=== PATIENT | male | born 1995 | race African-American/Black ===

== ENCOUNTER 2019-06-15 17:36 | Emergency (ER) | payer OTHER, SELFPAY ==
[2019-06-15 17:56] VITALS: BP 136/91; PULSE 76; RESP 18; TEMP 36.7; O2SAT 99
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
[2019-06-15 18:22] VITALS: BP 142/78; PULSE 78; RESP 16; O2SAT 100
[2019-06-15 18:58] LABS: Hepatitis B Surface Antigen Negative (Negative)
[2019-06-15 19:04] LABS: HAV RESULT Negative (Negative); Hepatitis B Core IgM Result Negative (Negative)
[2019-06-15 19:15] LABS: HIV 1/2 Ab P24 Ag Result Negative (Negative); Hepatitis C Virus Antibody Negative (Negative)
== END 2019-06-15 18:22 ==
PROVIDERS: Emergency Provider Emergency Medicine
DX: Z02.89 Encounter for other administrative examinations (principal)
CPT/HCPCS: 36415; 80074; 86703; 99283; G0432

== ENCOUNTER 2023-03-29 23:57 | Emergency (ER) | payer SELFPAY ==
[2023-03-29 23:58] VITALS: BP 114/81; PULSE 77; RESP 14; TEMP 37; O2SAT 98
== END 2023-03-29 23:59 | disposition left against medical advice (07) ==
LOC: ANHED 03-30 01:59
DX: K08.89 Other specified disorders of teeth and supporting structures (principal)
CPT/HCPCS: 99199

== ENCOUNTER 2023-04-09 04:34 | Emergency (ER) | payer OTHER, SELFPAY ==
[2023-04-09 04:36] VITALS: BP 128/74; PULSE 86; RESP 15; TEMP 36.8; O2SAT 100
--- NOTE | 2023-04-09 04:37 | ED.GENADULT ---
HPI - General Adult General Chief complaint: Dental/Oral Stated complaint: toothache Time Seen by Provider: 04/09/23 04:35 History of Present Illness HPI narrative: This is a 27-year-old male presenting via ambulance with 3 weeks of dental pain. patient has been able to get to see his dentist. He has been taking Motrin intermittently with some relief. Related Data Allergies Allergy/AdvReac Type Severity Reaction Status Date / Time No Known Allergies Allergy Verified 04/09/23 04:36 [facility] Past Medical History Medical History (Updated 04/09/23 @ 04:39 by Abdullahi Cain MD) Bipolar 1 disorder Social History Social History (Updated 06/15/19 @ 18:04 by Shaista Griffin PA-C) Substance use type: marijuana Gender identity (if verbalized by the patient): Male Exam Narrative: APPEARANCE: No apparent distress. Head: poor dentition, no evidence of abscess EYES: EOMI, NOSE: Atraumatic NECK: Trachea midline RESPIRATORY: No increased rate of breathing CARDIOVASCULAR: RRR, ABDOMINAL: Non-distended MUSCULOSKELETAl: No obvious deformities NEURO: Alert. Moving 4/4 extremities SKIN:: Warm, dry. Normal color PSYCHIATRIC: Normal affect Course Vital Signs Vital signs: Vital Signs Temperature 98.2 F 04/09/23 04:36 Pulse Rate 86 04/09/23 04:36 Respiratory Rate 15 04/09/23 04:36 Blood Pressure 128/74 04/09/23 04:36 Pulse Oximetry 100 04/09/23 04:36 Oxygen Delivery Room Air 04/09/23 04:36 Temperature 98.2 F 04/09/23 04:36 Pulse Rate 86 04/09/23 04:36 Respiratory Rate 15 04/09/23 04:36 Blood Pressure 128/74 04/09/23 04:36 Pulse Oximetry 100 04/09/23 04:36 Oxygen Delivery Room Air 04/09/23 04:36 Procedures Nerve Block Nerve Block 1: Nerve block date: 05/01/23 Local Anesthetic: bupivacaine 0.25% Amount of anesthesia used (mL): 3 Side: left Intraoral Nerve Block: superior alveolar Procedure Successful: Yes Patient Tolerated Procedure: well Complications: none Medical Decision Making MDM Narrative Medical decision making narrative: -Course: 27-year-old male presenting with dental pain. Given Toradol Tylenol and Augmentin. Dental block performed. Discharged with dental follow-up. -DDX includes but is not limited to: Toothache, dental caries, dental infection -Procedures: CP her block using 3 cc 0.25% -Interventions: Toradol, Tylenol, Augmentin -Shared decision making / Disposition: discharge -RX Toradol motrin, augmentin Vital Signs Vital Signs: Vital Signs Temperature 98.2 F 04/09/23 04:36 Pulse Rate 86 04/09/23 04:36 Respiratory Rate 15 04/09/23 04:36 Blood Pressure 128/74 04/09/23 04:36 Pulse Oximetry 100 04/09/23 04:36 Oxygen Delivery Room Air 04/09/23 04:36 Temperature 98.2 F 04/09/23 04:36 Pulse Rate 86 04/09/23 04:36 Respiratory Rate 15 04/09/23 04:36 Blood Pressure 128/74 04/09/23 04:36 Pulse Oximetry 100 04/09/23 04:36 Oxygen Delivery Room Air 04/09/23 04:36 Discharge Plan Discharge Clinical Impression: Toothache Patient Disposition: Home, Self-Care Condition: Stable Instructions: Antibiotic Form, Toothache (ED) Additional Instructions: please take medications as prescribed. Follow-up with your dentist. Prescriptions: New ibuprofen 800 mg tablet 800 mg PO TID PRN (Reason: pain) 7 Days Qty: 21 0RF acetaminophen 500 mg tablet 1,000 mg PO TID PRN (Reason: eze) 7 Days Qty: 42 0RF amoxicillin-pot clavulanate 875-125 mg tablet 1 tablet PO Q12H Qty: 20 0RF Follow-up/Referrals: UNKNOWN,DOCTOR [Primary Care Provider] - Stand Alone Forms: Work/School Release IP
[2023-04-09] MEDS: AMOXICILLIN/CLAVULANATE K 875-125 MG TAB 1 TABLET PO (04:42)
[2023-04-09] MEDS: ACETAMINOPHEN 500 MG TABLET 1000 MG PO (04:42)
[2023-04-09] MEDS: KETOROLAC 30 MG/ML VIAL (*BKC) IM (04:43)
[2023-04-09 05:23] VITALS: BP 134/72; PULSE 90; RESP 15; O2SAT 99
== END 2023-04-09 05:23 | disposition home or self-care (01) ==
PROVIDERS: Emergency Provider Emergency Medicine
DX: K08.89 Other specified disorders of teeth and supporting structures (principal)
CPT/HCPCS: 64999; 99283; A9270; J1885

== ENCOUNTER 2023-08-12 21:48 | Emergency (ER) | payer OTHER, SELFPAY ==
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
[2023-08-12 21:48] VITALS: BP 107/78; PULSE 94; RESP 18; TEMP 36.9; O2SAT 96
[2023-08-12 21:57] VITALS: BP 107/78; PULSE 96; RESP 18; TEMP 36.9; O2SAT 98
--- NOTE | 2023-08-12 22:29 | ED.GENADULT ---
HPI - General Adult General Chief complaint: Wound/Laceration Stated complaint: ARM LAC History of Present Illness HPI narrative: Patient is a 28-year-old male who presents to the emergency department this his right forearm. Patient will answer any questions regarding how he obtained this, admits that his tetanus shot is not up-to-date and is currently requesting [place] fries and ice cream. He denies any additional symptoms or concerns at this time. Related Data Allergies Allergy/AdvReac Type Severity Reaction Status Date / Time No Known Allergies Allergy Verified 04/09/23 04:36 Review of Systems Review of Systems: All systems are reviewed and are negative unless stated otherwise in the HPI. [facility] Past Medical History Medical History Bipolar 1 disorder Social History Social History Substance use type: marijuana Gender identity (if verbalized by the patient): Male Exam Narrative: General: Alert, awake, afebrile, in no acute distress. Cardiovascular: Regular rate and rhythm, no murmurs, rubs or gallops, no peripheral edema. Respiratory: Clear to auscultation bilaterally, no tachypnea, no wheezing, no rhonchi, no rubs, no respiratory distress. Abdomen: Soft, nontender, nondistended, no rebound, no guarding, no peritoneal signs. Musculoskeletal: No joint swelling or deformity, normal muscle tone. Skin: 3 cm linear laceration to the lateral forearm involving subcutaneous tissue, no muscular or tendon involvement, no foreign bodies, intact right radial and ulnar pulses, patient is neurovascularly intact. Neurological: Alert and oriented to person, place, and time. Follows all commands. No focal deficits, speech is clear and fluent. Course Vital Signs Vital signs: Vital Signs Temperature 98.4 F 08/12/23 21:48 Pulse Rate 94 08/12/23 21:48 Respiratory Rate 18 08/12/23 21:48 Blood Pressure 107/78 08/12/23 21:48 Pulse Oximetry 96 08/12/23 21:48 Oxygen Delivery Room Air 08/12/23 21:48 Temperature 98.4 F 08/12/23 21:57 Pulse Rate 96 08/12/23 21:57 Respiratory Rate 18 08/12/23 21:57 Blood Pressure 107/78 08/12/23 21:57 Pulse Oximetry 98 08/12/23 21:57 Oxygen Delivery Room Air 08/12/23 21:48 Medical Decision Making MDM Narrative Medical decision making narrative: The patient was evaluated by myself in the emergency department. History is obtained from patient who is an independent historian and physical exam was performed. External medical records were reviewed at this time. Tetanus booster was administered at this time. Imaging studies obtained included right forearm x-ray which was independently interpreted by me revealing no foreign bodies, no fractures or dislocations, which is pending final radiology interpretation. Differential diagnosis considerations include laceration, retained foreign body, fractures. Comorbidities impacting this visit include none. I have evaluated and discussed social determinants of health with the patient that could potentially impact subsequent diagnosis and treatment plans. On repeat assessment of the patient, it was noted that patient did leave the emergency without completion of his workup or repair of his laceration. Vital Signs Vital Signs: Vital Signs Temperature 98.4 F 08/12/23 21:48 Pulse Rate 94 08/12/23 21:48 Respiratory Rate 18 08/12/23 21:48 Blood Pressure 107/78 08/12/23 21:48 Pulse Oximetry 96 08/12/23 21:48 Oxygen Delivery Room Air 08/12/23 21:48 Temperature 98.4 F 08/12/23 21:57 Pulse Rate 96 08/12/23 21:57 Respiratory Rate 18 08/12/23 21:57 Blood Pressure 107/78 08/12/23 21:57 Pulse Oximetry 98 08/12/23 21:57 Oxygen Delivery Room Air 08/12/23 21:48 Discharge Plan Discharge Clinical Impression: Laceration Patient Disposition: [facility]
--- NOTE | 2023-08-12 23:05 | PC.NURSE ---
Pt being inappropriate to ED female nurses/registration. Pt moved to room 14 for male nurse to take over. Pt then exit ED through the ambulance bay followed by ED security.
== END 2023-08-12 23:05 | disposition left against medical advice (07) ==
PROVIDERS: Emergency Provider Emergency Medicine
DX: S51.811A Laceration without foreign body of right forearm, initial encounter (principal); X58.XXXA Exposure to other specified factors, initial encounter
CPT/HCPCS: 73090; 99283